=== PATIENT | male | born 1965 | race Caucasian/White ===

== ENCOUNTER 2024-12-21 11:16 | Emergency (ER) | payer OTHER, SELFPAY ==
[2024-12-21 11:27] VITALS: BP 137/87
[2024-12-21 11:43] LABS: % Basophils 1.5 % (0-2); % Eosinophils 1.4 % (0-6); % Immature Granulocytes 0.6 % (0-0.5); % Lymphocytes 24.2 % (20.5-51.1); % Neutrophils 63.3 % (42.2-75.2); Absolute Basophils 0.1 10^3/uL (0-0.2); Absolute Eosinophils 0.1 10^3/uL (0-0.7); Absolute Lymphocytes 1.8 10^3/uL (1.2-3.4); Absolute Monocytes 0.7 10^3/uL (0.1-0.6); Absolute Neutrophils 4.6 10^3/uL (1.4-6.5); Hematocrit 46.4 % (39.0-52.0); Hemoglobin 16.4 g/dL (13.0-18.0); Mean Corp Hgb Conc. 35.3 g/dL (33.0-37.0); Mean Corpuscular Hgb 30.2 pg (27.0-31.0); Mean Corpuscular Volume 85.5 fL (80.0-94.0); Mean Platelet Volume 7.9 fL (7.4-10.4); Nucleated Red Blood Cells % 0 % (-); Platelet Count 354 10^3/uL (130-400); Red Blood Cell Count 5.43 10^6/uL (4.70-6.10); Red Cell Dist. Width 13.9 % (11.5-14.5); White Blood Cell Count 7.3 10^3/uL (4.8-10.8)
[2024-12-21 11:56] LABS: ALT (SGPT) 39 U/L (0-50); AST (SGOT) 37 U/L (17-59); Albumin 4.3 g/dl (3.5-5.0); Alkaline Phosphatase 70 U/L (38-126); Blood Urea Nitrogen 17 mg/dl (9-20); Calcium 9.9 mg/dl (8.4-10.2); Carbon Dioxide 26 mmol/L (22-30); Chloride 106 mmol/L (98-107); Glucose 96 mg/dl (70-99); Potassium 4.3 mmol/L (3.5-5.1); Sodium 141 mmol/L (135-145); Total Bilirubin 0.9 mg/dl (0.2-1.3); Total Protein 7.5 g/dl (6.3-8.2); eGFR > 60.00
[2024-12-21 12:08] LABS: Troponin I < 0.012 ng/ml
[2024-12-21 13:55] VITALS: BP 125/104; BMI 26.3
[2024-12-21 14:00] VITALS: BP 112/75
--- NOTE | 2024-12-21 14:34 | ED.GENMED ---
History of Present Illness
<Luz Benson PA-C - Last Filed: 12/21/24 21:31>
General
Chief Complaint: Chest Pain
Source: patient
Exam Limitations: none
Time Seen by Provider: 12/21/24 13:59
Nursing documentation reviewed up to this point in time: agreed with
History of Present Illness
History of Present Illness:
59 y/o M with h/o hernia repair, kidney stones, HLD, former smoker (former cocaine/meth/alcohol abuse, sober 8 years)
here with chest and abd pain x 1 week
says he noticed intermittent sharp LUQ pains lasting a second or two, once or twice a day for a week
but then noticed a more constant cnetral chest tightness, but then says 'it comes and goe' and occasional L arm tingling, also with some L neck soreness
hasn't had the symptoms constantly it sounds like but he has noticed it is occasionally worse with walking
no cough/cold symptoms
no pleuritic pain or shortness of breath, nausea, vomiting, diarpohesis, diziness
he has had some L sided neck soreness and L shoulder pain
mild headache
no chiropractor visit
does not feel like reflux
no h/o pancreaitits
no unexplained weight loss
had neg stress test 1.5 years ago
doesn't remember which group he saw
Past History
<Luz Benson PA-C - Last Filed: 12/21/24 21:31>
Past History
ED Past Medical History: Hypercholesterolemia and Other (Kidney stone)
ED Past Surgical History: None
Social History
Tobacco: Former smoker
Alcohol: Former
Drug: Other (former cocaine, alcohol, meth)
Review of Systems
<Luz Benson PA-C - Last Filed: 12/21/24 21:31>
Review of Systems
Allergies reviewed?: Yes
All Other Systems: Not applicable
Phy Exam
<Luz Benson PA-C - Last Filed: 12/21/24 21:31>
Physical Exam
Physical Exam:
GENERAL: Alert , in no apparent distress
EYE: pupils equal and reactive
NECK: Supple
ENT: o/p clr, mmm.
CARDIAC: Regular rate and rhythm no murmur
LUNGS: Clear breath sounds bilaterally, no acute respiratory distress, no wheezes/rales/rhonchi
ABDOMEN: Soft, without focal tenderness, no r/g, no cvat, normal bowel sounds
NEUROLOGICAL: Alert and oriented, no focal neuro deficits, full strength and sensation in UE/LE
SKIN: Warm and dry, skin intact.
MUSCULOSKELETAL: No edema, well perfused. neg ally's sign
PSYCH: Normal and appropriate interaction.
Course
<Luz Benson PA-C - Last Filed: 12/21/24 21:31>
Orders/Labs/Results
Orders:
Orders
12/21/24 11:18
Electrocardiogram (*1) Urgent
Reason for Study: Chest Pain
Cardiac Monitoring- Treatment ONCE
EKG- Treatment ONCE
IV Insert/Care/Rem.- Treatment PRN
O2 Therapy [RESP] Urgent
Titrate/Wean O2 to maintain O2 sat greater than (%): 90
Special Instructions: Maintain sats >/=90%
Pulse Ox/spot Check [RESP] Urgent
Quantity: 1
Special Instructions: ON ROOM AIR
12/21/24 11:31
Complete Blood Count/With Diff Urgent
Comprehensive Metabolic Panel Urgent
Troponin I Urgent
12/21/24 14:33
Electrocardiogram (*1) Urgent
Reason for Study: Chest Pain
EKG- Treatment ONCE
Pantoprazole [Protonix IV] 40 mg IV NOW STA
12/21/24 14:37
CR Chest - 2 Views Urgent
Comment:
Reason For Exam: chest pain
12/21/24 14:41
Mag Hydrox/Al Hydrox/Simeth [Maalox] 30 ml Phenobarb/Hyoscy/Atropine/Scop [] 10 ml PO NOW
12/21/24 14:43
Lipase Urgent
Troponin I Urgent
12/21/24 14:44
Mag Hydrox/Al Hydrox/Simeth [Maalox] 30 ml .ROUTE .STK-MED ONE
Phenobarb/Hyoscy/Atropine/Scop [] 10 ml .ROUTE .STK-MED ONE
Abnormal Lab Results
12/21/24
11:31
Absolute Monos (auto) 0.7 H 10^3/uL
(0.1-0.6)
Immature Gran % 0.6 H %
(0-0.5)
12/21/24 11:31
12/21/24 11:31
Vital Signs
Initial and Last Documented VS:
Initial Vital Signs
Temp Pulse Resp BP Pulse Ox
36.7 C 67 16 137/87 98
12/21/24 11:27 12/21/24 11:27 12/21/24 11:27 12/21/24 11:27 12/21/24 11:27
Last Documented Vital Signs
Temp Pulse Resp BP Pulse Ox
36.7 C 62 16 120/87 97
12/21/24 11:27 12/21/24 15:00 12/21/24 15:00 12/21/24 15:00 12/21/24 15:00
<Robby Arnold MD - Last Filed: 12/21/24 15:48>
Orders/Labs/Results
Orders:
Orders
12/21/24 11:18
Electrocardiogram (*1) Urgent
Reason for Study: Chest Pain
Cardiac Monitoring- Treatment ONCE
EKG- Treatment ONCE
IV Insert/Care/Rem.- Treatment PRN
O2 Therapy [RESP] Urgent
Titrate/Wean O2 to maintain O2 sat greater than (%): 90
Special Instructions: Maintain sats >/=90%
Pulse Ox/spot Check [RESP] Urgent
Quantity: 1
Special Instructions: ON ROOM AIR
12/21/24 11:31
Complete Blood Count/With Diff Urgent
Comprehensive Metabolic Panel Urgent
Troponin I Urgent
12/21/24 14:33
Electrocardiogram (*1) Urgent
Reason for Study: Chest Pain
EKG- Treatment ONCE
Pantoprazole [Protonix IV] 40 mg IV NOW STA
12/21/24 14:37
CR Chest - 2 Views Urgent
Comment:
Reason For Exam: chest pain
12/21/24 14:41
Mag Hydrox/Al Hydrox/Simeth [Maalox] 30 ml Phenobarb/Hyoscy/Atropine/Scop [] 10 ml PO NOW
12/21/24 14:43
Lipase Urgent
Troponin I Urgent
12/21/24 14:44
Mag Hydrox/Al Hydrox/Simeth [Maalox] 30 ml .ROUTE .STK-MED ONE
Phenobarb/Hyoscy/Atropine/Scop [] 10 ml .ROUTE .STK-MED ONE
Abnormal Lab Results
12/21/24
11:31
Absolute Monos (auto) 0.7 H 10^3/uL
(0.1-0.6)
Immature Gran % 0.6 H %
(0-0.5)
12/21/24 11:31
12/21/24 11:31
Vital Signs
Initial and Last Documented VS:
Initial Vital Signs
Temp Pulse Resp BP Pulse Ox
36.7 C 67 16 137/87 98
12/21/24 11:27 12/21/24 11:27 12/21/24 11:27 12/21/24 11:27 12/21/24 11:27
Last Documented Vital Signs
Temp Pulse Resp BP Pulse Ox
36.7 C 62 16 120/87 97
12/21/24 11:27 12/21/24 15:00 12/21/24 15:00 12/21/24 15:00 12/21/24 15:00
ED Attending Note
<Luz Benson PA-C - Last Filed: 12/21/24 21:31>
-
Portions of this chart may have been created with voice recognition software.� Occasional wrong word or��sound alike� substitutions may have occurred due to the inherent limitations of voice recognition software.
<Robby Arnold MD - Last Filed: 12/21/24 15:48>
ED Attending Note
Patient seen and examined by attending physician: Yes
ED Attending Note:
I have seen and evaluated the patient with a [id number] encounter. I have spoken to the advance practicer provider and involved in the medical history, the physical exam, medical decision making.
Evaluation and management service: agree unless noted differently below.
Results interpretation: agree unless noted differently below.
Focused HPI: 59-year-old male former smoker with hyperlipidemia who presents to the ER for evaluation of chest pain. Patient reports symptoms started about a week ago and have been intermittent. He reports that he will get a sharp pain in the left
chest that last for a few moments and then resolved. No clear trigger or relieving factor noted. No clear exertional component. He denies any shortness of breath, cough, dizziness, nausea, vomiting, diaphoresis. Denies any injury or trauma.
Denies similar symptoms in the past. He says he did have a cardiac stress test about a year and a half ago due to his history of smoking and was told it was reassuring.
Physical exam: Awake and alert no distress. Marginal hypertension otherwise normal vitals. No cardiac rubs gallops or murmurs. Lungs clear to auscultation bilaterally. No reproducible chest wall tenderness. No abdominal tenderness. Good pulses
throughout, no edema.
Medical Decision Makin-year-old male presents for evaluation of atypical chest pain for the past week. Vitals and exam as above. EKG shows sinus rhythm no acute ischemia. CBC and CMP unremarkable, troponin serially undetectable. Chest x-ray
reviewed by me shows no acute disease. Low suspicion for emergent pathology based on history and exam, negative workup as above. Stable for discharge will refer to cardiology given his risk factors.
Discharge Plan
Departure
Patient Disposition: Home (Routine Discharge)
Date of Disposition: 12/21/24
Time of Disposition: 15:46
Patient with high blood pressure during this ER visit?: Yes
Condition: Fair
Covid-19: Not Applicable
Discharge Problem:
Chest pain
Instructions: Chest Pain DCA Follow Up
Prescriptions:
No Action
tamsulosin [Flomax] 0.4 mg Capsule
0.4 mg PO DAILY Qty: 10 0RF
ketorolac 10 mg tablet
10 mg PO Q6H PRN (Reason: pain) Qty: 20 0RF
Referrals:
Brandon Rubi MD [Active] - Follow up in 1 week
Keenan Moss MD [Family Provider] - Follow up in 2-3 days
Activity Restrictions/Additional Instructions:
YOUR CHEST PAIN DOES NOT SEEM TO BE CAUSED BY A CARDIAC EMERGENCY
THE TESTING TODAY YOU HAD WAS REASSURING BUT YOU SHOULD HAVE CLOSE FOLLOW UP WITH TRAIN MASTER
YOU SHOULD BE HEARING FROM THE OFFICE WITHIN A FEW DAYS TO SCHEDULE CLOSE FOLLOW UP
IN THE MEANTIME YOU CAN TRY TAKING PEPCID TWICE A DAY OVER THE COUNTER AND SEE IF THIS HELPS
THIS CHEST PAIN COULD BE FROM GI PROBLEMS LIKE GASTRITIS OR ESOPHAGITIS
FOLLOW UP WITH GI [facility]
RETURN FOR: WORSENING PAIN, SHORTNESS OF BREATH, PASSING OUT, OVMITING, BLACK STOOL OR ANY CONCERNS.
Interventions
Interventions:
*Risk Screen - Suicide Last Done: 12/21/24 11:27
*General Assessment Last Done: 12/21/24 13:56
*Neglect/Abuse Screening Last Done: 12/21/24 11:27
*ED- Fall Risk Assessment Last Done: 12/21/24 13:56
*ED COVID-19 Vaccine History Last Done: 12/21/24 13:56
*Nursing Disposition Last Done: 12/21/24 16:08
ED- Cardiac Assessment Last Done: 12/21/24 13:56
Discharge Date and Time
Discharge Date/Time: 12/21/24 16:09
Print Language: AMHARIC
[2024-12-21] MEDS: MAALOX 40 PO (14:46)
[2024-12-21] MEDS: PROTONIX IV 40 MG IV (14:46)
[2024-12-21 15:00] VITALS: BP 120/87
[2024-12-21 15:08] LABS: Lipase 49 U/L (23-300)
[2024-12-21 15:21] LABS: Troponin I < 0.012 ng/ml
== END 2024-12-21 16:09 | disposition home or self-care (01) ==
LOC: EMR 11:16
PROVIDERS: Physician Assistant; EMERGENCY PHYSICIAN Emergency Medicine; FAMILY PHYSICIAN Family Medicine
DX: R07.89 Other chest pain (principal); E78.00 Pure hypercholesterolemia, unspecified; Z87.442 Personal history of urinary calculi; Z87.891 Personal history of nicotine dependence
CPT/HCPCS: 99283; 96374; 71046; 80053; 83690; 84484; 85025; 93005